=== PATIENT | female | born 1990 | race Caucasian/White ===

== ENCOUNTER 2017-01-02 19:51 | Emergency (ER) | payer SELFPAY ==
--- NOTE | ~2017-01-02 | ER ---
PATIENT'S NAME: MICHAEL MITCHELL [facility] AGE: 26 Y [address] ROOM: [place] [address] LOCATION: ED ADMIT DATE: 01/02/2017 ER/Outpatient Report DISCHARGE DATE: 01/02/2017 FAMILY PHYSICIAN: Norma Alberto MD ATTENDING PHYSICIAN: Kavita Lloyd Time of Arrival: 1957 hours. Time of Evaluation: 2010 hours. CHIEF COMPLAINT: Pain of the left side of her face. HISTORY OF PRESENT ILLNESS: The patient reports that she has a sore tooth of the left lower denture area, that has gotten worse. It has caused facial pain and swelling. She has had a fever today. States she has not talked with a dentist. ALLERGIES: SULFA. CURRENT MEDICATIONS: On her chart and reviewed by me. PAST MEDICAL HISTORY: Dental caries, tooth abscess. PAST SURGICAL HISTORY: Negative. INTENSIVE CARE MEDICINE SPECIALIST HISTORY: Last menstrual period was on 01/02/2017. SOCIAL HISTORY: Smokes half pack per day and has for the last 10 years. Denies the use of drugs and alcohol. REVIEW OF SYSTEMS: All negative other than those mentioned in the HPI. PHYSICAL EXAMINATION: VITAL SIGNS: She states she is 5 feet 6 inches. She weighs 51.4 kg. Blood pressure is 143/81, pulse of 100, respirations 16, temperature of 100.8 tympanic, O2 saturations 100% on room air. GENERAL: She is awake, alert, and oriented x4. SKIN: Her skin is pink, warm, and dry. PATIENT'S NAME: MICHAEL MITCHELL [facility] AGE: 26 Y [address] ROOM: [place] [address] LOCATION: [facility] ADMIT DATE: 01/02/2017 ER/Outpatient Report DISCHARGE DATE: 01/02/2017 FAMILY PHYSICIAN: Norma Alberto MD ATTENDING PHYSICIAN: Kavita Lloyd RESPIRATIONS: Even and nonlabored. Lung sounds are clear throughout. HEART: Regular rate and rhythm. The patient has teeth of various stages of decay throughout her whole mouth. She does have an abscessed area in the left lower teeth gumline. LABORATORY DATA AND X-RAYS: CBC was drawn. It is within normal limits. Chem panel is within normal limits. Urine was negative. Urine drug screen was positive for cannabinoid. IMPRESSION: Dental caries, tooth abscess. PLAN: Home. Rest. Soft fluids. Frequently rinse her mouth. Prescription was written for doxycycline antibiotic and [place] for pain. She is to follow up with a dentist in the next 2 to 3 days. See her primary provider as needed. She verbalized understanding. ZAID LEMUS APRN FOR [facility] DEL[facility] SINGH/yehuda /[id number] d: 01/03/17 0056 t: 01/04/17 1825, OUTPATIENT REPORT
[~2017-01-02 19:51] MED LIST: BRETHINE5 MG PO; MOTRIN800 MG PO; PERCOCET 5-3251 EACH PO; PRENATAL 1+1)(P1 TAB PO; VISTARIL25 MG PO
[2017-01-02 20:35] LABS: HEMATOCRIT 39.7 % (33.0-46.0); HEMOGLOBIN 12.9 g/dL (11.0-15.0); MCH 27.7 pg (27.0-34.0); MCHC 32.5 gm/dL (32.0-36.5); MCV 85.4 fl (83.0-98.0); MPV 11.1 fl (9.4-12.4); PLATELET COUNT 150 K/uL (150-450); RBC 4.65 M/uL (3.50-5.00); RDW-CV 13.3 % (11.9-14.6)
[2017-01-02 20:50] LABS: ALBUMIN 3.4 gm/dL (3.5-5.0); ALK PHOS 80 IU/L (33-138); ALT 28 IU/L (12-78); ANION GAP 13.7 (10.0-19.0); AST 21 IU/L (10-40); BLOOD UREA NITROGEN 8 mg/dL (6-24); CALCIUM 8.2 mg/dL (8.5-10.5); CHLORIDE 106 mMol/L (96-110); CO2 23 mMol/L (22-32); CREATININE 0.8 mg/dL (0.5-1.1); ESTIMATED GFR (MDRD EQUATION) > 60; POTASSIUM 3.7 mMol/L (3.7-5.1); SODIUM 139 mMol/L (135-145); TOTAL BILIRUBIN 0.8 mg/dL (0.0-1.5); TOTAL PROTEIN 7.2 g/dL (6.0-8.4)
[2017-01-02 20:53] LABS: BARBITURATE NEGATIVE (NEGATIVE); COCAINE NEGATIVE (NEGATIVE)
[2017-01-02 20:56] LABS: AMPHETAMINE NEGATIVE (NEGATIVE); OPIATES NEGATIVE (NEGATIVE)
[2017-01-02 21:00] LABS: ABSOLUTE NEUTROPHIL CT (ANC) 4.5 K/uL (1.8-7.8); BANDED NEUTROPHIL # 0.9 K/uL (0.0-0.1); BANDED NEUTROPHILS % 15 %; LYMPHOCYTE # 1.3 K/uL (0.8-4.0); LYMPHOCYTE % 21 %; MONOCYTE # 0.2 K/uL (0.0-1.0); SEGMENTED NEUTROPHIL # 3.6 K/uL (1.8-7.8); SEGMENTED NEUTROPHIL % 60 %
== END 2017-01-02 21:02 | disposition disaster alternative care site (69) ==
LOC: GMED 19:51
PROVIDERS: Nurse Practitioner Family
DX: K04.7 Periapical abscess without sinus (principal); K02.9 Dental caries, unspecified; F17.210 Nicotine dependence, cigarettes, uncomplicated; Z79.3 Long term (current) use of hormonal contraceptives; Z79.899 Other long term (current) drug therapy; Z88.2 Allergy status to sulfonamides

== ENCOUNTER 2017-01-03 11:09 | Emergency (ER) | payer SELFPAY ==
--- NOTE | ~2017-01-03 | ER ---
PATIENT'S NAME: MICHAEL MITCHELL [facility] AGE: 26 Y [address] ROOM: [place] [address] LOCATION: [facility] ADMIT DATE: 01/03/2017 ER/Outpatient Report DISCHARGE DATE: 01/03/2017 FAMILY PHYSICIAN: Norma Alberto MD ATTENDING PHYSICIAN: Torsten Rose Time of Arrival: 1111 hours. Time of Exam: 1111 hours. CHIEF COMPLAINT: Tooth infection, sore throat. HISTORY OF PRESENT ILLNESS: The patient was seen yesterday for tooth abscess and was given a prescription for doxycycline and [place]. She states she did get them filled and has taken the doxycycline last night; however, she did not take it today because her throat hurts. States she has not taken any of the pain medicine. Reports that the sore throat began about 1 o'clock this morning. She felt like she had a temperature at that time of 102.8. Reports that her tooth abscess actually feels better, but her throat is the problem. ALLERGIES: SULFA. MEDICATIONS: On her chart and reviewed by me. PAST MEDICAL HISTORY: Mild asthma and multiple teeth decay. PAST SURGERIES: Negative. SOCIAL HISTORY: She smokes a half pack per day. Denies use of drugs or alcohol. REVIEW OF SYSTEMS: All negative other than those mentioned in the HPI. PHYSICAL EXAMINATION: VITAL SIGNS: She weighed 51 kg. Blood pressure is 94/54, pulse of 83, respirations 16, temperature 98.4, and O2 saturation was 99% on room air. GENERAL: She is awake, alert, and oriented x4. SKIN: [place], warm, and dry. RESPIRATIONS: Even and nonlabored. PATIENT'S NAME: MICHAEL MITCHELL [facility] AGE: 26 Y [address] ROOM: [place] [id number] LOCATION: [facility] ADMIT DATE: 01/03/2017 ER/Outpatient Report DISCHARGE DATE: 01/03/2017 FAMILY PHYSICIAN: Norma Alberto MD ATTENDING PHYSICIAN: Torsten Rose HEENT: Nasal is boggy. Oropharynx is injected posteriorly. No exudate noted. Her abscesses around her left lower tooth that I saw last night have improved, it looks like they have drained. She was given Rocephin 1 g IM. IMPRESSION: 1. Tooth abscess. 2. Pharyngitis. PLAN: Home. Rest. Continue the antibiotics and pain medicines as prescribed. Fluids. Follow up with a dentist as recommended last night. She verbalized understanding. ZAID LEMUS APRN FOR MD DELMY LITTLE/yehuda /[id number] d: 01/03/172015 t: 01/12/17 1934, OUTPATIENT REPORT
== END 2017-01-03 12:16 | disposition disaster alternative care site (69) ==
LOC: GMED 11:09
DX: K04.7 Periapical abscess without sinus (principal); J02.9 Acute pharyngitis, unspecified; F17.210 Nicotine dependence, cigarettes, uncomplicated; J45.909 Unspecified asthma, uncomplicated; Z88.2 Allergy status to sulfonamides; Z79.899 Other long term (current) drug therapy
CPT/HCPCS: J0696